=== PATIENT | female | born 1955 | race Caucasian/White ===

== ENCOUNTER → 2016-06-05 | Outpatient (CLI) | payer OTHER ==
[~2016-06-05] MED LIST: AMBIEN5 MG PO; ATARAX,VISTARIL25 MG PO; BACTRIM,SEPT1 TABLET PO; COLACE100 MG PO; DESYREL100 MG PO; DURAGESIC12 MCG TD; ERGOCALCIF50000 UNIT PO; FLEXERIL10 MG PO; FLEXERIL5 MG PO; LORAZEPAM1 MG PO; NEURONTIN300 MG PO; OXYCODONE-ACET1 EACH PO; PERCOCET 5/31 TABLET PO; PROPRANOLOL HCL20 MG PO; REQUIP0.25 MG PO; SYNTHROID88 MCG PO; VENLAFAXINE HC150 M1 PO; VITAMIN D400 UNI1 PO; Vitamin D; WELLBUTRIN XL150 MG PO
== END | disposition home or self-care (01) ==
LOC: CDC 12:00
DX: Z01.810 Encounter for preprocedural cardiovascular examination (principal); M48.06 Spinal stenosis, lumbar region
CPT/HCPCS: 93000

== ENCOUNTER 2016-06-11 07:59 | Inpatient (IN) | payer OTHER ==
[~2016-06-11] VITALS: Ht 149.9 cm; Wt 118.6 kg
[~2016-06-11 07:59] MED LIST changes: -BACTRIM,SEPT1 TABLET PO; -DURAGESIC12 MCG TD; -FLEXERIL10 MG PO; -PERCOCET 5/31 TABLET PO
[2016-06-11 10:02] VITALS: BP 147/67
[2016-06-11 19:09] VITALS: BP 147/69
[2016-06-11 19:15] VITALS: BP 147/69
[2016-06-11 20:09] VITALS: BP 134/65
[2016-06-11 23:45] VITALS: BP 103/57
[2016-06-12] VITALS (8 sets, daily range): BP systolic 97–115; BP diastolic 49–57
[2016-06-13 07:25] VITALS: BP 120/70
[2016-06-13 10:42] VITALS: BP 122/80
[2016-06-13 16:31] VITALS: BP 129/60
[2016-06-13 20:09] VITALS: BP 104/49
[2016-06-13 23:52] VITALS: BP 122/60
[2016-06-14 03:47] VITALS: BP 109/65
[2016-06-14 07:59] VITALS: BP 130/62
[2016-06-14 11:40] VITALS: BP 100/56
[2016-06-14 15:49] VITALS: BP 111/53
[2016-06-14 19:57] VITALS: BP 134/62
[2016-06-14 23:33] VITALS: BP 104/50
[2016-06-15 03:55] VITALS: BP 111/59
[2016-06-15 07:33] VITALS: BP 107/62
[2016-06-15] MEDS ORDERED: DURAGESIC12 MCG TD (09:15)
[2016-06-15] MEDS ORDERED: PERCOCET 5/31 TABLET PO (09:16)
[2016-06-15] MEDS ORDERED: BACTRIM,SEPT1 TABLET PO (09:17)
[2016-06-15] MEDS ORDERED: FLEXERIL10 MG PO (09:17)
[2016-06-15 11:47] VITALS: BP 111/53
== END 2016-06-15 13:25 | disposition home or self-care (01) | DRG 460 ==
LOC: 2SOUTH → 3EAST 09:12 → 2SOUTH 14:34 → 3EAST 18:58
PROVIDERS: Neurological Surgery
DX: S32.049A Unspecified fracture of fourth lumbar vertebra, initial encounter for closed fracture (principal); Z68.43 Body mass index [BMI] 50.0-59.9, adult; W19.XXXA Unspecified fall, initial encounter; M48.06 Spinal stenosis, lumbar region; F32.9 Major depressive disorder, single episode, unspecified; F41.9 Anxiety disorder, unspecified; M81.0 Age-related osteoporosis without current pathological fracture; M47.26 Other spondylosis with radiculopathy, lumbar region; E66.2 Morbid (severe) obesity with alveolar hypoventilation; R26.2 Difficulty in walking, not elsewhere classified
CPT/HCPCS: 72100; 76000; 82948; 94799; 97530 GP; C1713; C1768; J0690; J0696; J1170; J1580; J1885; J2250; J2405; J2710; J2930; J3010; J3370; J3480; J7050; Q0177; S0020